=== PATIENT | female | born 1965 | race Hispanic/Latino ===

== ENCOUNTER → 2018-04-09 | Outpatient (CLI) | payer BC | LOC: MAMMO 10:20 | PROVIDERS: ATTEND Family Medicine | DX: Z12.31 Encounter for screening mammogram for malignant neoplasm of breast (principal) | CPT/HCPCS: 77067 ==

== ENCOUNTER → 2021-02-05 | Outpatient (CLI) | payer BC | LOC: MAMMO 09:35 | PROVIDERS: ATTEND Family Medicine | DX: Z12.31 Encounter for screening mammogram for malignant neoplasm of breast (principal); M25.542 Pain in joints of left hand; M25.541 Pain in joints of right hand | CPT/HCPCS: 77067 ==